=== PATIENT | female | born 1950 | race Caucasian/White ===

== ENCOUNTER 2016-10-01 11:55 | Emergency (ER) | payer BC, MEDICARE ==
--- NOTE | 2016-10-08 17:54 | ER ---
ADMIT: 10/01/2016 RM/LOC: ER [facility] MR#: [id number] [address] [address] [place] [address] Emergency Room Report SEX: F AGE: 66 : 1950 DATE: 10/01/2016 Ms. Duckworth is a 66-year-old female, who says she lives in [place] and is here for some type of therapy for her leg and back. Apparently was at [facility] and tried to sit down and missed the wheelchair. She is pretty confused. She says she is concerned because her memory is very "flail." She worried because her is always with her. At this time, she is by herself and is feeling like very anxious. She did not have any loss of consciousness. She is wearing a postop boot on the left leg. PHYSICAL EXAMINATION: Neurologically she repeats herself multiple times. She is anxious. She is disoriented to person, place, and situation. The complaint originally was back pain. VITAL SIGNS: Blood pressure 87/67, heart rate 100, respirations 16, temp 98.8, O2 sats 96%. ALLERGIES: PENICILLIN, SULFA, LATEX, DEMEROL, ELAVIL, AND FLAGYL. SHE HAS HAD A HISTORY OF CHF. AT THIS POINT, DOES NOT HAVE ANY ISSUES CONCERNING HER HEART. NO CHEST PAIN. NO SHORTNESS OF BREATH. NO EDEMA. DR. HYDE ORDERED A CT OF THE LUMBAR SPINE WHICH CAME BACK, READ NEGATIVE. CLINICAL IMPRESSION: She does have some chronic disk degeneration, lumbar strain secondary to fall, but no fracture. The patient was discharged, but was given Ativan for comfort before she left. She was extremely anxious and almost to the point of tears because her was not present with her in the ER. NAVID Lomeli / Kyler Hyde MD / diamante JOB #: [id number] CC: Kyler Hyde MD, Attending Physician Monica Trivedi MD, Family Physician
[2016-10-25] MEDS ORDERED: ASA CHILDREN'S81 MG PO (14:01)
[2016-10-25] MEDS ORDERED: CULTURELLE1 CAP PO (14:01)
[2016-10-25] MEDS ORDERED: BUSPAR DPS15 MG PO (14:01)
[2016-10-25] MEDS ORDERED: KLONOPIN DPS1 MG PO (14:02)
[2016-10-25] MEDS ORDERED: MACRODANTIN DPS50 MG PO (14:02)
[2016-10-25] MEDS ORDERED: LIPITOR40 MG PO (14:02)
[2016-10-25] MEDS ORDERED: KLONOPIN DPS0.5 MG PO (14:02)
[2016-10-25] MEDS ORDERED: NEURONTIN100 MG PO (14:03)
[2016-10-25] MEDS ORDERED: MIRAPEX DPS0.25 MG PO (14:03)
[2016-10-25] MEDS ORDERED: PHENERGAN DPS25 MG PO ×2 (14:03→14:06)
[2016-10-25] MEDS ORDERED: ZYPREXA5 MG PO (14:04)
[2016-10-25] MEDS ORDERED: PROTONIX40 MG PO (14:04)
[2016-10-25] MEDS ORDERED: SEROQUEL25 MG PO (14:04)
[2016-10-25] MEDS ORDERED: DULERA 200/58.8 GM IH (14:04)
[2016-10-25] MEDS ORDERED: WELLBUTRIN SR150 MG PO (14:04)
[2016-10-25] MEDS ORDERED: LEVEMIR100 UNIT/1 SQ (14:05)
[2016-10-25] MEDS ORDERED: DULCOLAX-DPS10 MG PR (14:05)
[2016-10-25] MEDS ORDERED: MAALOX DPS30 ML PO (14:06)
[2016-10-25] MEDS ORDERED: AMBIEN DPS10 MG PO (14:06)
[2016-10-25] MEDS ORDERED: MIRALAX PACKET17 GM PO (14:06)
[2016-10-25] MEDS ORDERED: CEPACOL SORE T1 EACH PO (14:06)
[2016-10-25] MEDS ORDERED: NITROSTAT0.4 MG SL (14:07)
[2016-10-25] MEDS ORDERED: TYLENOL DPS325 MG PO (14:07)
[2016-10-25] MEDS ORDERED: TESSALON PERLE100 M1 PO (14:07)
[2016-10-25] MEDS ORDERED: DUONEB DPS3 ML IH (14:07)
[2016-10-25] MEDS ORDERED: CETAPHIL CLEAN240 ML TP (14:08)
== END 2016-10-01 15:15 | disposition home or self-care (01) ==
LOC: ER 11:55
DX: S39.012A Strain of muscle, fascia and tendon of lower back, initial encounter (principal); M51.36 Other intervertebral disc degeneration, lumbar region; W05.0XXA Fall from non-moving wheelchair, initial encounter; Z88.0 Allergy status to penicillin; Z88.2 Allergy status to sulfonamides; Z88.5 Allergy status to narcotic agent; Z91.040 Latex allergy status; Y92.129 Unspecified place in nursing home as the place of occurrence of the external cause

== ENCOUNTER 2016-10-19 19:31 | Inpatient (IN) | payer BC, MEDICARE ==
[~2016-10-19] VITALS: Ht 157.5 cm; Wt 62.0 kg
--- NOTE | ~2016-10-19 | ECH ---
Transthoracic Echocardiography Report (TTE) Demographics Patient Name GHADA APONTE Date of Study 10/20/2016 Patient Number [id number] Visit Number [id number] Date of 1950 Room Number 313 Accession Number [id number] Gender Female Age 66 year(s) Referring Dimitri Granger Branch Service Specialist Marissa Real [facility] Physician Physician Interpreting Lita Dodson MD Service Girl Physician Supervising Ordering Physician Dimitri Granger MD/MLP Nurse Stress Share Holder Conclusions Summary Technically fair exam. The estimated left ventricular ejection fraction is 55-60%. Mild to moderate left ventricular hypertrophy. Diastolic assessment reveals Grade I diastolic dysfunction. No significant valvular abnormalities. Procedure Type of Study TTE procedure:Echo Complete SF. Procedure Date Date: 10/20/2016 Start: 01:39 PM Technical Quality: Adequate visualization Indications:Hypotension, Chest pain and Shortness of breath. Appropriate Use Criteria: 9 Height: 62 inches Weight: 133 pounds BSA: 1.61 m Rhythm: NSR HR: 96 bpm BP: 113/64 mmHg M-Mode/2D Measurements LV Diastolic Dimension: 3.69 cm LV Systolic Dimension: 2.94 cm LV Septum Diastolic: 1.53 cm LV PW Diastolic: 1.27 cm AO Root Dimension: 2.42 cm Cardiac Output: 10.75 l/min LA Dimension: 3.22 cm Cardiac Index: 6.68 l/min*m LA volume index: 29 ml/m LVOT: 1.97 cm RV Base: 3.98 cm LVOT VTI: 36.76 cm RV Mid: 2.63 cm LV Stroke volume: 111.99 ml LV Stroke volume index: 69.56 ml/m Doppler Measurements AV Peak Velocity: 1.69 m/s MV Peak E-Wave: 0.88 m/s AV Peak Gradient: 11.42 mmHg MV Peak A-Wave: 1.42 m/s AV Mean Gradient: 7.4 mmHg MV E/A Ratio: 0.62 LVOT Peak Velocity: 1.71 m/s MV P1/2t: 54.1 msec AV Area (Continuity):3.18 cm MV Deceleration Time: 203.1 msec MV Area (PHT): 4.07 cm PV Peak Velocity: 1.49 m/s PV Peak Gradient: 8.89 mmHg RA Area: 9.97 cm Findings Left Ventricle The left ventricle is normal in size . Mild to moderate left ventricular hypertrophy. Diastolic assessment reveals Grade I diastolic dysfunction. Right Ventricle Normal right ventricle structure and function. Left Atrium Normal left atrial size. Right Atrium Normal right atrial size. Mitral Valve Mild mitral annular calcification. Trivial mitral regurgitation by color Doppler. Aortic Valve The aortic valve is mildly sclerotic. Tricuspid Valve Normal tricuspid valve structure and function. Trivial tricuspid regurgitation by color Doppler. Pulmonic Valve Normal pulmonic valve structure and function. Pericardial Effusion No evidence of pericardial effusion. Miscellaneous Visualized portions of the aortic root and ascending aorta appear normal in size. Pleural Effusion No evidence of pleural effusion. Contractility Score LV regional wall motion:(0-Non visualized 1-Normal 2-Hypokinesis 3-Akinesis 4-Dyskinesis 5-Aneurysm) Signature
--- NOTE | ~2016-10-19 | CO ---
ADMIT: 10/19/2016 RM/LOC: 410 [facility] MR#: [id number] [address] [address] [place] [address] Consultation SEX: F AGE: 66 : 1950 DATE OF CONSULTATION: 10/22/2016 ATTENDING PHYSICIAN: Hermes Angeles CONSULTING PHYSICIAN: Wai Holder MD HISTORY OF PRESENT ILLNESS: The patient is a 66-year-old female with multiple medical comorbidities with psychiatric background who presented with chest pain several days ago to the hospital. She has had these episodes off and on in the past, but I have been consulted for issues over the last half a year of postprandial vomiting and trouble with keeping food down. It is difficult to know if this was truly dysphagic type complaints. She did mention she has had some type of esophageal surgery many years ago which was "the worst surgery" she has ever had. She denies change in bowel function. Denies melena. Denies hematochezia. Admits to about an 8-10 pound weight loss during the time of this postprandial vomiting issues. Denies hematemesis with any of these issues. PAST MEDICAL HISTORY: Includes a history of coronary artery disease, COPD, hyperlipidemia, hypertension, atrial fibrillation, Guillain Trivoli syndrome, diabetes, bipolar disorder, obsessive-compulsive disorder, reflux disease. MEDICATIONS: Include: 1. BuSpar. 2. Aspirin. 3. Klonopin. 4. Culturelle. 5. Lipitor. 6. Megace. 7. Macrodantin. 8. Mirapex. 9. Neurontin. 10.Protonix. 11.Seroquel. 12.Phenergan. 13.Wellbutrin. 14.Zyprexa. 15.Levemir. 16.Lovenox. 17.Insulin. ALLERGIES: MULTIPLE INCLUDING SULFA, PENICILLINS, HYDROCODONE, NEOMYCIN, MUPIROCIN, BACITRACIN, AMITRIPTYLINE, MEPERIDINE, METRONIDAZOLE, AND TRIMETHOPRIM. FAMILY HISTORY: Colon cancer in a grandmother. No family history of cerebrovascular disease. No family history of diabetes. SOCIAL HISTORY: She is a nonsmoker and nondrinker. ADMIT: 10/19/2016 RM/LOC: 410 [facility] MR#: [id number] [address] [address] GHADA APONTE [facility] [place] [address] Consultation SEX: F AGE: 66 : 1950 REVIEW OF SYSTEMS: Denies headaches, had chest pain when she was admitted to the hospital but no longer having chest pain or shortness of breath. Has a dysphagia and vomiting per HPI. No extremity complaints or hematologic, neurologic issues. PHYSICAL EXAMINATION: GENERAL: She is afebrile. VITAL SIGNS: Stable. HEART : Regular with a systolic ejection murmur. LUNGS: Clear. ABDOMEN: Soft, nondistended, nontender. EXTREMITIES: No peripheral edema. ASSESSMENT AND PLAN: The patient is a 66-year-old with a history of some type of esophageal surgery with a history of diabetes, detention reflux has been on long-term proton pump inhibitor therapy who has had regurgitation, vomiting, and some weight loss issues over the last several months. CT scan that mentioned possibly some esophageal wall thickening which could be just findings related to her old esophageal surgery. Our plan tomorrow morning is to keep her n.p.o. after midnight. We will do upper endoscopy evaluation, likely biopsies to rule out some type of mechanical obstruction. If we find something of that nature, she may require dilatation which we discussed with her. Risks and benefits were discussed. Wai Holder MD/ diamante JOB #: [id number] CC: Hermes Angeles, Attending Physician Hermes Angeles, Family Physician
--- NOTE | 2016-10-20 06:57 | ER ---
ADMIT: 10/19/2016 RM/LOC: 313 [facility] MR#: [id number] [address] [address] [place] [address] Emergency Room Report SEX: F AGE: 66 : 1950 DATE: 10/19/2016 TIME: 1931 hours. Please refer to my T-sheet for complete H and P. HISTORY OF PRESENT ILLNESS: Briefly, the patient is a 66-year-old, who is actually from [place]. She is out here rehab at [facility], Dr. Angeles is the doctor over there. She is rehabbing from a recent pneumonia [place]. She comes in with short of breath and chest discomfort. She has multiple comorbidities hypertension, hyperlipidemia, and diabetes. She says it is kind of a pressure pain. She has been coughing, bringing up some phlegm, just feels short of breath. PHYSICAL EXAMINATION: VITAL SIGNS: Blood pressure is 101/52, pulse 99, respirations 18, temp 99.2, and sat 98%. GENERAL: No acute distress. HEENT: Grossly normal. LUNGS: Trace of wheeze. HEART: Regular. No murmur. ABDOMEN: Soft, nontender. EXTREMITIES: She has a right foot boot on from her Charcot foot, but no swelling, no tenderness. NEUROLOGIC: Alert and oriented, nonfocal. EMERGENCY DEPARTMENT COURSE: We ended up with sepsis protocol. Chest x-ray revealed left lower atelectasis. CBC was normal except white count 13, hemoglobin of 11.5. Chemistries normal except sodium 130, BUN 34, glucose 213, CK was 25, CK-MB 1.1. Troponin 0.042. We sent 2 blood cultures, started antibiotics. I gave her a fluid bolus per the 30 mL/kg. We gave her Decadron 10 IV, a GI cocktail, four aspirin. Her pain was resolved, she was ADMIT: 10/19/2016 RM/LOC: 313 [facility] MR#: [id number] [address] [address] GHADA APONTE [facility] [place] [address] Emergency Room Report SEX: F AGE: 66 : 1950 comfortable. I also gave her Protonix. Started the antibiotics. I talked to Mosley, will admit to the hospital. ASSESSMENT: 1. Chest pain. 2. Early left lower lobe infiltrate. 3. Hypotension, her pressures have been in 80s to 90s systolic. 4. Slightly elevated troponin. 5. Chronic obstructive pulmonary disease. 6. Early sepsis. PLAN: Admit to the hospital. Paramjit Beckman MD/ frankl JOB #: [id number] CC: Hermes Angeles MD, Attending Physician Hermes Angeles MD, Family Physician
[2016-10-25] MEDS ORDERED: CULTURELLE1 CAP PO (14:01)
[2016-10-25] MEDS ORDERED: ASA CHILDREN'S81 MG PO (14:01)
[2016-10-25] MEDS ORDERED: BUSPAR DPS15 MG PO (14:01)
[2016-10-25] MEDS ORDERED: KLONOPIN DPS0.5 MG PO (14:02)
[2016-10-25] MEDS ORDERED: MACRODANTIN DPS50 MG PO (14:02)
[2016-10-25] MEDS ORDERED: KLONOPIN DPS1 MG PO (14:02)
[2016-10-25] MEDS ORDERED: LIPITOR40 MG PO (14:02)
[2016-10-25] MEDS ORDERED: NEURONTIN100 MG PO (14:03)
[2016-10-25] MEDS ORDERED: PHENERGAN DPS25 MG PO ×2 (14:03→14:06)
[2016-10-25] MEDS ORDERED: MIRAPEX DPS0.25 MG PO (14:03)
[2016-10-25] MEDS ORDERED: ZYPREXA5 MG PO (14:04)
[2016-10-25] MEDS ORDERED: SEROQUEL25 MG PO (14:04)
[2016-10-25] MEDS ORDERED: PROTONIX40 MG PO (14:04)
[2016-10-25] MEDS ORDERED: WELLBUTRIN SR150 MG PO (14:04)
[2016-10-25] MEDS ORDERED: DULERA 200/58.8 GM IH (14:04)
[2016-10-25] MEDS ORDERED: DULCOLAX-DPS10 MG PR (14:05)
[2016-10-25] MEDS ORDERED: LEVEMIR100 UNIT/1 SQ (14:05)
[2016-10-25] MEDS ORDERED: AMBIEN DPS10 MG PO (14:06)
[2016-10-25] MEDS ORDERED: MIRALAX PACKET17 GM PO (14:06)
[2016-10-25] MEDS ORDERED: MAALOX DPS30 ML PO (14:06)
[2016-10-25] MEDS ORDERED: CEPACOL SORE T1 EACH PO (14:06)
[2016-10-25] MEDS ORDERED: TYLENOL DPS325 MG PO (14:07)
[2016-10-25] MEDS ORDERED: TESSALON PERLE100 M1 PO (14:07)
[2016-10-25] MEDS ORDERED: DUONEB DPS3 ML IH (14:07)
[2016-10-25] MEDS ORDERED: NITROSTAT0.4 MG SL (14:07)
[2016-10-25] MEDS ORDERED: CETAPHIL CLEAN240 ML TP (14:08)
--- NOTE | 2016-11-09 12:37 | DS ---
ADMIT: 10/19/2016 RM/LOC: 410 [facility] MR#: [id number] [address] [address] [place] [address] General Discharge Summary SEX: F AGE: 66 : 1950 ADMISSION DATE: 10/19/2016 DISCHARGE DATE: 10/24/2016 CONSULT: Include Cardiology and Surgery. PROCEDURES: During this hospitalization include an EGD. FINAL DIAGNOSES: Sepsis secondary to pneumonia, urinary tract infection with Klebsiella, atypical chest pain, postprandial vomiting, hypertension, atrial fibrillation, congestive heart failure, chronic obstructive pulmonary disease, bipolar disorder, and obsessive-compulsive disorder. HPI: The patient was recently sent out of a [facility]iatric [facility] to a [facility], so that the patient to gain some strength where she started having chest pain. The patient was then sent to the ER, she was found to have pneumonia and was meeting sepsis criteria, so she was admitted. For pneumonia and sepsis, the patient was started on sepsis protocol, receiving IV fluids, appropriate lab work, cultures, etc. The patient was also started on IV antibiotics. The patient's O2 sats were stable. Because the patient was still complaining of some chest pain, we did check a CTA which was negative for PE, chest pain, elevated troponin. We consulted Cardiology, who felt that at this time the patient's elevated troponin was more than likely related to the sepsis and pneumonia. The patient had a heart catheterization on August 01, 2016 in [place], which was relatively normal with no serious blockages, they did an echo during this hospitalization which showed an EF of 55%-60%. No other cardiac measures were done at that time. Postprandial vomiting, the patient has had significant difficulties with swallowing, nausea, and vomiting. The patient states that she had a 10-pound weight loss recently. She denies any blood in the stool or blood in the vomit. Surgery was consulted and endoscopy was done, which showed some reflux esophagitis, but no obstruction. A dilation was performed with that EGD. The patient's other psychiatric issues were managed appropriately with her home dosing. The patient was continued on antibiotics for UTI. MEDS AT THE TIME OF DISCHARGE: Include; 1. Baby aspirin. 2. BuSpar 50 mg t.i.d. 3. Klonopin 1 capsule at night 0.5 mg p.o. daily. 4. Lipitor 40 mg at bedtime. 5. Macrodantin 50 mg b.i.d. which was to be continued and stopped on 11/01/2016. 6. Neurontin 100 mg t.i.d. 7. Phenergan 24 mg q.i.d. 8. Protonix 40 mg daily. 9. Seroquel 25 mg b.i.d. 10.Wellbutrin 150 mg daily. 11.Zyprexa 50 mg at bedtime. 12.Advair. 13.Dulcolax as needed. ADMIT: 10/19/2016 RM/LOC: [address] [place] [address] MR#: [id number] [address] [address] [place] [address] General Discharge Summary SEX: F AGE: 66 : 1950 14.Levemir 10 units b.i.d. 15.Ambien 10 mg at bedtime p.r.n. 16.Cepacol lozenges. 17.Maalox. 18.MiraLax. 19.Tessalon Perles. 20.Tylenol p.r.n. The patient was sent out on 100 mg b.i.d. and doxycycline for 14 days. She was put on IV fluid restriction of 2400 mL a diabetic diet. The patient was also supposed to monitor the patient's blood sticks. They initially were supposed to notify the doctor with blood sugars less than 50 or greater than 500. As far as other follow up, the patient will be seen by Dr. Angeles at the care home in 2 weeks. CODE STATUS: DNR/DNI. Court Grier MD Resident / Hermes Angeles MD / modl JOB #: [id number] CC: Hermes Angeles MD, Attending Physician Hermes Angeles MD, Family Physician
--- NOTE | 2016-11-15 06:50 | HP ---
ADMIT: 10/19/2016 RM/LOC: 313 [facility] MR#: [id number] [address] [address] [facility] [place] [place] [address] History and Physical SEX: F AGE: 66 : 1950 Corrected: 10/20/2016 1517 jazmyne DATE OF SERVICE: CHIEF COMPLAINT: Chest pain. The patient is meeting SIRS criteria in the ER with a possible source of pneumonia. HISTORY OF PRESENT ILLNESS: The patient is originally from [place], but is currently residing in [facility] for rehab after being in a [facility] for psychiatric treatment for 3 weeks. She became very deconditioned and weak, so placement was looked for for strengthening. She has been here since about the middle to late September. She is a patient of Dr. Angeles. Overall, things are going well. She says physical therapy seems to be making a difference. However, this afternoon she started having a sharp chest pain and was a little more short of breath. She does admit to having some dry cough but does sometimes spit up some sputum. She does have COPD, however. She tells me that she had an OR 6 weeks ago, but per her record, she has not had an OR, she has had a mild heart attack a few years back that showed she had mild coronary artery disease and again per usp, there are no signs of acute OR. Also, notes that her states she has never had an OR. The therapy is more related to her deconditioning than any other significant event. The patient was found to be hypertensive in the ER and she is meeting SIRS criteria, so sepsis protocol was started with blood cultures and urine cultures were taken. Chest x-ray showed possible atelectasis or developing consolidation. The patient does currently have a UTI with Klebsiella pneumoniae as the species and she is being treated with Macrodantin. The patient's chest pain and her blood pressure improved with a little bit of fluid resuscitation, but her blood pressures dropped back down and she is asymptomatic, however. The patient was admitted to the ICU for management. PAST MEDICAL HISTORY: Significant for hypertension; AFib; congestive heart failure; COPD; bipolar; GERD; diabetes, type 2; hypercholesterolemia; anemia; history of hypomagnesium, hyposodium, group B strep. PAST SURGICAL HISTORY: Significant for appendectomy, gallbladder removal, hysterectomy, oral surgeries. FAMILY HISTORY: Noncontributory. SOCIAL HISTORY: The patient lives in [place]. She is currently living at [facility] for rehab. She does not smoke or drink alcohol. She is . PHYSICAL EXAMINATION: VITAL SIGNS: When arriving to the floor; temperature is 98.9; pulse is 98; respiratory rate is 14; and blood pressure is 93/58. It has dropped down into the upper 80s, however, as well. O2 saturation is 98% on room air. GENERAL: No acute distress. She is alert and oriented x3. She is breathing easily. She is very anxious and tangential with her thought process. She gets distracted very easily. ADMIT: 10/19/2016 RM/LOC: 313 [facility] MR#: [id number] [facility] [address] [address] [place] [address] History and Physical SEX: F AGE: 66 : 1950 HEENT: Normocephalic, atraumatic. Moist mucous membranes. Extraocular muscles are intact. HEART: Regular rate and rhythm. She did have a 3/6 systolic murmur. LUNGS: Clear to auscultation bilaterally. ABDOMEN: Soft, nontender. Positive bowel sounds. No organomegaly. EXTREMITIES: No edema. 2+ pulses. NEURO: Cranial nerves II through XII are grossly intact. PSYCH: Again, she is anxious. She is having this tangential discussion. I also feel she is doing quite a bit of splitting as well. She seems to go between hot and cold on people that she likes and people that she does not like or how things are being done even here like within 10 minutes upon arriving to the floor. : She has a Britt in place as the patient feels she is too weak to get up and go to the bathroom on her own. LABORATORY DATA AND IMAGING: Lab work done in the ER, white blood cell count was slightly elevated at 13, hemoglobin was low at 11.5, as she does have chronic anemia, and platelets were normal at 260. Sodium is 130, again she has chronic hyponatremia. Potassium is 4.2, chloride is 93, CO2 is 27, BUN is 34, creatinine is 1.1, glucose is 213 and corrected calcium is 9.1, phosphorus is 2.8, mag is 1.9, alkaline phosphatase is normal. AST and ALT are not elevated. CK was slightly low at 25, MB was normal. However, the patient's troponin was elevated at 0.042. This is just a mild elevation and the patient's chest pain has improved. EKG in the ER showed sinus rhythm with a septal infarct that was age undetermined, so we will continue to do chest pain rule out at this time. ASSESSMENT AND PLAN: 1. Chest pain. She does have a significant history of heart history such as congestive heart failure, hypertension, and atrial fibrillation. Again, the troponin is elevated where the EKG showed a possible age undetermined anteroseptal infarct. We will continue to trend the cardiac enzymes and if they increase, we will start the patient on ACS protocol. 2. Hypotension. We do have the patient running on low fluid as the patient ADMIT: 10/19/2016 RM/LOC: 313 [facility] MR#: [id number] [facility] [address] [address] [place] [address] History and Physical SEX: F AGE: 66 : 1950 has a history of congestive heart failure. We will use Levophed as needed to keep the MAP over 65. 3. Sepsis. She does have an increased lactic acid at 2.3. She is hypertensive, elevated white blood cell count, possible pneumonia. We will start the patient on antibiotics and she has pending urine cultures and blood cultures. 4. Other diagnoses include congestive heart failure, atrial fibrillation, bipolar disorder, chronic obstructive pulmonary disease, obsessive- compulsive disorder. We will continue to follow those and manage those as appropriate as well. Court Grier MD Resident / Elkin Mosley MD / modl JOB #: [id number] CC: Hermes Angeles, Attending Physician Hermes Angeles, Family Physician Corrected: 10/20/2016 1517 [email or web address]
--- NOTE | 2016-11-16 14:15 | CO ---
ADMIT: 10/19/2016 RM/LOC: 410 [facility] MR#: [id number] [id number] [address] [place] [address] Consultation SEX: F AGE: 66 : 1950 DATE OF CONSULTATION: 10/21/2016 ATTENDING PHYSICIAN: Hermes Angeles CONSULTING PHYSICIAN: Xu London MD REASON FOR CONSULT: Chest pain, mildly elevated troponin. HISTORY OF PRESENT ILLNESS: The patient came into the ER 2 days ago on 10/19 with an acute onset of chest pain, which presented after she woke up in the morning. She rated the chest pain at that time as 7/10 in severity. It was a substernal pressure that did not radiate. Associated symptoms included shortness of breath, nausea, fatigue, and lightheadedness. The chest pain was constant throughout that day. When the patient was admitted, she met the sepsis criteria and started antibiotics. Since this time, her chest pain has gotten progressively better. On 10/20, she still had some substernal chest discomfort, but it was getting better. Starting today,10/21, her chest pain has resolved. She has no associated symptoms. The patient does report that in the past, she has gotten episodic chest pressure episodes as well as notes a particular episode about 6 weeks ago and which was of worse severity. After this episode, she did have coronary angiography done in July of 2016 at [facility] revealing a 20% to 30% lesion of the LAD and right coronary artery. Ejection fraction at this time is 35% to 40%. Echo was done yesterday and revealed an ejection fraction of 55% to 60%, moderate left ventricular hypertrophy and grade 1 diastolic dysfunction. The patient's EKGs since this time have not shown ischemia. Her troponin levels have been mildly elevated and stable since admission. The patient has a personal history of atrial fibrillation and a history of heart failure. Risk factors for coronary artery disease include hypertension, hyperlipidemia, type 2 diabetes, smoking history, and a positive family history of coronary artery disease. PAST MEDICAL HISTORY: Significant illnesses: 1. Atrial fibrillation. 2. Hypertension. 3. Hyperlipidemia. 4. History of heart failure. 5. COPD. 6. Anemia. 7. Guillain-Asotin syndrome. 8. Type 2 diabetes. 9. Bipolar disorder. 10.UTI. 11.Obsessive compulsive disorder. 12.Gastroesophageal reflux disease. MEDICATIONS: 1. Aspirin 81 mg p.o. daily. 2. BuSpar 15 mg p.o. t.i.d. ADMIT: 10/19/2016 RM/LOC: 410 [facility] MR#: [id number] [id number] [address] [place] [address] Consultation SEX: F AGE: 66 : 1950 3. Culturelle one cap p.o. a.c. 4. Klonopin 1 mg tab p.o. at bedtime. 5. Klonopin 0.5 mg tab p.o. daily. 6. Lipitor 40 mg p.o. at bedtime. 7. Macrodantin 50 mg p.o. b.i.d. 8. Megace 800 mg-20 mL p.o. b.i.d. 9. Mirapex 0.5 mg p.o. t.i.d. 10.Neurontin 100 mg p.o. t.i.d. 11.Phenergan 25 mg p.o. q.i.d. 12.Protonix 40 mg p.o. daily. 13.Seroquel 25 mg p.o. b.i.d. 14.Wellbutrin 150 mg p.o. daily. 15.Zyprexa 5 mg p.o. at bedtime. 16.Dulera one puff b.i.d. 17.Dulcolax 10 mg daily. 18.Levemir 10 units subcu b.i.d. 19.Lovenox 40 mg subcu daily. 20.NovoLog sliding scale. 21.Nitroglycerin drip 50 mg-250 mL IV. 22.IV normal saline fluid. 23.Vancocin IV. ALLERGIES: PENICILLINS, HYDROCODONE, NEOMYCIN, SULFA, BACITRACIN, MUPIROCIN, TRIMETHOPRIM, METRONIDAZOLE, AMITRIPTYLINE, MEPERIDINE, POLYMYXIN B, LATEX. FAMILY HISTORY: Father with CT. Paternal grandmother, colon cancer. Mom, stroke. No family history of diabetes. SOCIAL HISTORY: The patient does report she tries to follow a special diet for diabetes. She rarely uses alcohol. She denies use of caffeine or drug use or abuse. 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 Marital status, . REVIEW OF SYSTEMS: GENERAL: The patient does report she tires easily. She denies recent fever, chills, or sweats. She reports a 16-pound weight loss over the past 6 months. EYES: Does admit to blurry vision. Denies glaucoma, cataracts, or total loss of vision. THROAT, MOUTH, AND EARS: Reports chronic problems with sinus and throat. Negative for problems with nose, hearing, or ears. RESPIRATORY: Positive history for COPD and snoring at night. Negative for sleep apnea. Negative for asthma, chronic cough, or bloody sputum. GASTROINTESTINAL: Positive for history of stomach ulcer and gallbladder problems requiring cholecystectomy. Negative for heartburn, difficulty swallowing, hiatal hernia, or liver disease. GASTROINTESTINAL TRACT: Positive for frequent UTIs. Negative for blood in urine problems with urination, kidney stones, or kidney failure. MUSCULOSKELETAL: Negative for arthritis, gout, muscle or joint pains. ADMIT: 10/19/2016 RM/LOC: 410 [facility] MR#: [id number] [id number] [address] [place] [address] Consultation SEX: F AGE: 66 : 1950 ENDOCRINE: Negative for thyroid problems. HEMATOLOGY/LYMPHATIC: Positive for anemia. Negative bleeding problems or cancer. NEUROLOGIC: Positive for numbness and tingling due to Guillain-Asotin syndrome. Negative for chronic headaches, stroke, or seizure disorder. PSYCHIATRIC: Positive for bipolar disorder, OCD, and anxiety problem. Negative for depression. PHYSICAL EXAMINATION: VITAL SIGNS: Temperature afebrile, pulse 94, respiratory rate 15, blood pressure 97/44, O2 saturation 100% on room air. GENERAL: Alert and oriented x3, in no acute distress. Anxious at times. NECK: Absent JVD. HEART: Regular rate and rhythm. No murmurs, clicks, rubs, or gallops. LUNGS: Clear to auscultation. ABDOMEN: Soft, nontender. EXTREMITIES: Absent edema. LABORATORY DATA: Weight is stable. EKG normal sinus rhythm, nonspecific T- wave abnormalities in anterior leads. Echo, EF of 55% to 60%. Moderate LVH, grade 1 diastolic dysfunction. Sodium 140, potassium 4.9, chloride 110, CO2 of 25, BUN 16, creatinine 0.9, glucose 142, calcium 8.1, magnesium 2.0. CK-MB 1.5, troponin 0.055 (0.042 on admission). White blood cell count 6.9, hemoglobin 8.9. Lactic acid 1.4. Chest x-ray, bibasilar interstitial thickening likely edema or atypical infection, stable from chest x-ray on 10/19. CTA: No pulmonary embolism, pulmonary nodule left lobule muscle neoplasm. ASSESSMENT: 1. Chest pain. 2. Abnormal troponin. 3. Nonobstructive coronary artery disease. 4. Nonischemic cardiomyopathy. 5. Pneumonia. PLAN: Reviewed cath from 07/22 from [facility]. Revealed 20% to 30% lesion of the LAD and right coronary artery. Showed a low ejection fraction of 35% to 40% by echo done yesterday, revealed an ejection fraction of 55% to 60%. EKG without ischemia, suspect troponin secondary to pneumonia/sepsis. No further workup needed. NAVID Rubio Student / Xu London MD / diamante JOB #: [id number] CC: Hermes Angeles, Attending Physician Hermes Angeles, Family Physician
--- NOTE | 2016-11-17 11:41 | OR ---
ADMIT: 10/19/2016 RM/LOC: 410 [facility] MR#: [id number] [address] [place] [address] Operative/Delivery Room Report SEX: F AGE: 66 : 1950 SURGERY DATE: 10/23/2016 SURGEON: Wai Holder MD PRE-PROCEDURE DIAGNOSIS: Postprandial vomiting, questionable dysphagia. POSTPROCEDURE DIAGNOSIS: Mild esophagitis. PROCEDURE: EGD with antral distal esophageal biopsies and attempted distal esophageal 20 mm balloon dilatation. INDICATIONS: The patient is a 66-year-old with dysphagia, postprandial vomiting type complaints with some type of questionable history of esophageal surgery who presents for upper endoscopy evaluation. FINDINGS: The patient was taken to the endoscopy suite. IV sedation was given. She was placed in left lateral decubitus position. A bite block was placed in the patient's mouth. The gastroscope was introduced down the oropharynx, down the esophagus, into the stomach through the pylorus into the duodenum. The duodenal bulb, second and third portion of the duodenum appeared normal. There was a 2nd portion of the duodenum nonobstructive wide- mouth diverticulum. There was no inflammation. The stomach also appeared normal. Although, due to some of her complaints, I did do antral biopsies. The pyloric channel was nonobstructive, easily intubated, and non-strictured. Remainder of the gastric body and fundus were unremarkable. On retroflexion view, there did not appear to be a hiatal hernia on exam of the GE junction. There were obvious changes of chronic distal esophagitis and multiple distal esophageal biopsies were taken. There did not appear to be any obvious obstructive pathology but secondary to her preoperative symptoms, I did go ahead and place an 18-20 mm balloon across the GE junction, dilated up 1st to 18, then 19, and 20 mm. I was able to move the balloon across the GE junction without any type of resistance. The balloon was desufflated and removed. The remainder of the mid and upper esophagus was normal. The gastroscope was removed. The patient tolerated the procedure without difficulty. She was transferred to recovery room in good condition. Wai Holder MD/ diamante JOB #: [id number] CC: Hermes Angeles, Attending Physician Hermes Angeles, Family Physician
== END 2016-10-24 17:23 | DRG 871 ==
LOC: ER 19:31 → 4PCU 20:57 → 3ICU 20:57 → 4PCU 10-21 18:53
PROVIDERS: ADMIT Family Medicine
DX: A41.9 Sepsis, unspecified organism (principal); J18.9 Pneumonia, unspecified organism; I95.9 Hypotension, unspecified; I11.0 Hypertensive heart disease with heart failure; I42.9 Cardiomyopathy, unspecified; I50.32 Chronic diastolic (congestive) heart failure; N39.0 Urinary tract infection, site not specified; J44.0 Chronic obstructive pulmonary disease with (acute) lower respiratory infection; B96.1 Klebsiella pneumoniae [K. pneumoniae] as the cause of diseases classified elsewhere; K21.0 Gastro-esophageal reflux disease with esophagitis; G65.0 Sequelae of Guillain-Barre syndrome; E11.610 Type 2 diabetes mellitus with diabetic neuropathic arthropathy; D63.8 Anemia in other chronic diseases classified elsewhere; E78.5 Hyperlipidemia, unspecified; I48.0 Paroxysmal atrial fibrillation; G25.81 Restless legs syndrome; F01.50 Vascular dementia, unspecified severity, without behavioral disturbance, psychotic disturbance, mood disturbance, and anxiety; R63.4 Abnormal weight loss; I25.10 Atherosclerotic heart disease of native coronary artery without angina pectoris; F42.9 Obsessive-compulsive disorder, unspecified; R20.0 Anesthesia of skin; F41.9 Anxiety disorder, unspecified; F31.9 Bipolar disorder, unspecified; K21.9 Gastro-esophageal reflux disease without esophagitis; E78.00 Pure hypercholesterolemia, unspecified; Z87.891 Personal history of nicotine dependence; Z82.49 Family history of ischemic heart disease and other diseases of the circulatory system; Z79.82 Long term (current) use of aspirin; Z79.4 Long term (current) use of insulin; Z66 Do not resuscitate